=== PATIENT | female | born 1995 | race Caucasian/White ===

== ENCOUNTER 2016-06-27 06:18 | Inpatient (IN) | payer BC, MEDICAID ==
[~2016-06-27] VITALS: Ht 175.3 cm; Wt 87.0 kg
--- NOTE | ~2016-06-27 | OR ---
[facility] 21 Y [address] ROOM: [place] [id number] LOCATION: GOBS ADMIT DATE: 06/27/2016 OR/Procedure Report DISCHARGE DATE: FAMILY PHYSICIAN: PHYSICIAN, NO ATTENDING PHYSICIAN: Edda Torres SURGEON: Edda Torres MD BRAND ATTENDANT: DATE OF PROCEDURE: 06/27/2016 PREOPERATIVE DIAGNOSES: 1. Intrauterine at 39 and half weeks. 2. Borderline gestational hypertension. 3. Gestational thrombocytopenia. POSTOPERATIVE DIAGNOSES: 1. Intrauterine at 39 and half weeks. 2. Borderline gestational hypertension. 3. Gestational thrombocytopenia. PROCEDURE: Spontaneous vaginal delivery. ESTIMATED BLOOD LOSS: 300 mL. ANESTHESIA: Epidural. FINDINGS: Male , score 8 and 9. Weight 7 pounds and 13 ounces. Intact placenta, 3-vessel cord. Second-degree perineal laceration. Left labial laceration. INDICATIONS: This patient is a 21-year-old, G 1, P 0 at 39 weeks and 1-day gestation who presented for induction of labor. She had a history of borderline blood pressures in clinic which were running in the 130s/70s. She also has a large amount of edema. All of her laboratory data had been normal other than she had some gestational thrombocytopenia at about 120. Decision was made for induction of labor because her cervix was favorable at 3 cm. She had Pitocin followed by artificial rupture of membranes. When she got to active labor, she progressed along a normal labor curve to completion. She underwent expulsive efforts for 40 minutes. DESCRIPTION OF PROCEDURE: With expulsive effort, the head delivered over an intact perineum. The rest of the fetus delivered. The nose and mouth were suctioned. The cord was clamped and cut. The was handed to awaiting team. Cord blood was drawn. The placenta delivered with manual traction. Cervix, vagina, and perineum were examined. Second-degree perineal laceration was noted and repaired in a standard fashion with Vicryl suture. PATIENT'S NAME: [facility] AGE: 21 Y [address] ROOM: [place] [id number] LOCATION: GOBS ADMIT DATE: 06/27/2016 OR/Procedure Report DISCHARGE DATE: FAMILY PHYSICIAN: PHYSICIAN, NO ATTENDING PHYSICIAN: Edda Torres There was a left labial laceration that extended slightly into the vagina and it was repaired with chromic suture. COMPLICATIONS: None. CONDITION: Mom stable in room. Infant to nursery. MD ANJANA MARCOS/princess /[id number] d: 06/28/16 0241 t: 06/28/16 0651, OPERATIVE SUMMARY
[2016-06-27] MEDS ORDERED: PRENATAL 1+1)(P1 TAB PO (07:03)
[2016-06-27] MEDS ORDERED: TUMS200 MG PO (07:03)
[2016-06-27 07:11] LABS: BASOPHIL % 0.4 %; EOSINOPHIL # 0.1 K/uL (0.0-0.5); EOSINOPHIL % 0.6 %; HEMATOCRIT 33.9 % (33.0-46.0); HEMOGLOBIN 11.1 g/dL (11.0-15.0); IMMATURE GRANULOCYTE # 0.1 K/uL (0.0-0.3); IMMATURE GRANULOCYTE % 0.9 %; LYMPHOCYTE # 1.9 K/uL (0.8-4.0); LYMPHOCYTE % 20.3 %; MCH 28.1 pg (27.0-34.0); MCHC 32.7 gm/dL (32.0-36.5); MCV 85.8 fl (83.0-98.0); MONOCYTE # 0.6 K/uL (0.0-1.0); MPV 13.9 fl (9.4-12.4); NEUTROPHIL # (ANC) 6.7 K/uL (1.8-7.8); NEUTROPHIL % 71.8 %; NRBC % 0 /100WBC (0-0.00); PLATELET COUNT 124 K/uL (150-450); RBC 3.95 M/uL (3.50-5.00); RDW-CV 13.3 % (11.9-14.6); WBC 9.3 K/uL (4.0-11.0)
[2016-06-28 05:09] LABS: BASOPHIL % 0.1 %; EOSINOPHIL % 0.3 %; HEMOGLOBIN 8.9 g/dL (11.0-15.0); IMMATURE GRANULOCYTE # 0.1 K/uL (0.0-0.3); IMMATURE GRANULOCYTE % 0.5 %; LYMPHOCYTE # 1.7 K/uL (0.8-4.0); LYMPHOCYTE % 12.1 %; MCH 28.6 pg (27.0-34.0); MCHC 32.8 gm/dL (32.0-36.5); MCV 87.1 fl (83.0-98.0); MONOCYTE # 0.8 K/uL (0.0-1.0); MONOCYTE % 6.1 %; MPV 13.2 fl (9.4-12.4); NEUTROPHIL # (ANC) 11.2 K/uL (1.8-7.8); NEUTROPHIL % 80.9 %; NRBC % 0 /100WBC (0-0.00); PLATELET COUNT 111 K/uL (150-450); RBC 3.11 M/uL (3.50-5.00); RDW-CV 13.6 % (11.9-14.6); WBC 13.9 K/uL (4.0-11.0)
--- NOTE | 2016-06-28 05:18 | NUR ---
VSS. BLEEDING SMALL, FUNDUS FIRM 1 DOWN. FLAT NIPPLES, USES SHEILD, BREASTFEEDS WELL WITH SHEILD. USING TEA PADS. REPORTS VOIDING WELL IN GOOD AMOUNTS. DOING WELL.
[2016-06-28 05:22] LABS: HEMATOCRIT 27.1 % (33.0-46.0)
[2016-06-28] MEDS ORDERED: MOTRIN800 MG PO (08:16)
[2016-06-28] MEDS ORDERED: PERCOCET 5-3251 EACH PO (08:16)
[2016-06-28] MEDS ORDERED: FEOSOL325 MG PO (08:16)
--- NOTE | 2016-06-28 16:06 | NUR ---
Met with patient and at bedside today. Introduced myself and the role of the CM department. Patient states she may discharge yet today, but they are waiting on baby to be circumsized. No discharge needs or concerns.
--- NOTE | 2016-06-29 05:25 | NUR ---
VSS. FUNDUS FIRM, -1, SMALL FLOW. CELIO BECKER ENCOURAGED PATIENT TO PUMP AFTER EACH FEEDING. LAST HAD 2 PERCOCT AT 0438, MOTRIN LAST AT 0030. WAS INDUCED FOR THROMBOCYTOPENIA, PLATELETS WERE IN THE 120S ON ADMISSION. HOME TODAY
== END 2016-06-29 10:50 | disposition disaster alternative care site (69) | DRG 775 ==
LOC: GOBS 06:18
PROVIDERS: ADMIT Obstetrics & Gynecology
DX: O13.4 Gestational [pregnancy-induced] hypertension without significant proteinuria, complicating childbirth (principal); D69.6 Thrombocytopenia, unspecified; O99.12 Other diseases of the blood and blood-forming organs and certain disorders involving the immune mechanism complicating childbirth; O70.1 Second degree perineal laceration during delivery; Z3A.39 39 weeks gestation of pregnancy; Z37.0 Single live birth
CPT/HCPCS: J2590; J3010; J7120

== ENCOUNTER 2016-11-04 19:33 | Emergency (ER) | payer BC ==
--- NOTE | ~2016-11-04 | ER ---
PATIENT'S NAME: TERESA CHRISTIANSON [facility] AGE: 21 Y [address] ROOM: [place] [id number] LOCATION: [facility] ADMIT DATE: 11/04/2016 ER/Outpatient Report DISCHARGE DATE: 11/04/2016 FAMILY PHYSICIAN: PHYSICIAN, NO ATTENDING PHYSICIAN: Alejandro Connor Time of Arrival: 1935. Time of Evaluation: 1942. CHIEF COMPLAINT: Laceration. HISTORY OF PRESENT ILLNESS: The patient states approximately 10 minutes prior to arrival she was cutting an avocado and received a laceration to the left thumb and a small one to the left third digit, minimal bleeding. No other injuries with the incident. ALLERGIES: NO KNOWN ALLERGIES. CURRENT MEDICATIONS: control. PAST MEDICAL HISTORY: Benign. PAST SURGERIES: Negative. SOCIAL HISTORY: She presents with her . Denies the use of tobacco, drugs, or alcohol. Her tetanus is current. REVIEW OF SYSTEMS: All negative other than those mentioned in the HPI. PHYSICAL EXAMINATION: VITAL SIGNS: She weighs 68.7 kg. Blood pressure is 123/74, pulse is 72, respirations 16, temperature of 97.6, O2 saturations 98% on room air. GENERAL: She is awake and alert and oriented x4. Her skin is pink, warm, and dry. RESPIRATIONS: Even and nonlabored. Lung sounds are clear throughout. HEART: Regular rate and rhythm. EXTREMITIES: The patient has an approximate 1 cm laceration to the left thumb on the palmar side and a 0.5 cm laceration to the third finger on the left. PATIENT'S NAME: TERESA CHRISTIANSON [facility] AGE: 21 Y [address] ROOM: [place] [id number] LOCATION: [facility] ADMIT DATE: 11/04/2016 ER/Outpatient Report DISCHARGE DATE: 11/04/2016 FAMILY PHYSICIAN: PHYSICIAN, NO ATTENDING PHYSICIAN: Alejandro Connor Both areas are well approximated. Minimal bleeding areas were cleansed well with saline, dried well, and then Dermabond was applied to help seal them shut. She was given instructions on keeping the areas clean and dry. IMPRESSION: Laceration. PLAN: Home, rest. Keep the areas clean and dry. Tylenol as needed for discomfort. Follow up with her primary provider in the next 2 to 3 days if she develops any signs of infection. She verbalized understanding. KOBE MCKEON APRN FOR MD ELLIOTT PLATT/princess /[id number] d: 11/05/165 t: 11/10/16 1814, OUTPATIENT REPORT
[~2016-11-04 19:33] MED LIST: FEOSOL325 MG PO; MOTRIN800 MG PO; PERCOCET 5-3251 EACH PO; PRENATAL 1+1)(P1 TAB PO; TUMS200 MG PO
== END 2016-11-04 19:50 | disposition disaster alternative care site (69) ==
LOC: GACC 19:33
PROC: 0HQGXZZ Repair Left Hand Skin, External Approach (ICD-10-PCS; principal; 2016-11-04)
DX: S61.012A Laceration without foreign body of left thumb without damage to nail, initial encounter (principal); S61.213A Laceration without foreign body of left middle finger without damage to nail, initial encounter; W26.0XXA Contact with knife, initial encounter